=== PATIENT | female | born 1955 | race Caucasian/White ===

== ENCOUNTER → 2020-09-21 09:48 | Outpatient (BNVA) | payer OTHER, SELFPAY | PROVIDERS: Family Provider Nurse Practitioner Family; Visit Provider Internal Medicine | DX: E11.22 Type 2 diabetes mellitus with diabetic chronic kidney disease (principal); E11.65 Type 2 diabetes mellitus with hyperglycemia; E78.5 Hyperlipidemia, unspecified | CPT/HCPCS: 99204 ==

== ENCOUNTER 2020-12-20 10:43 | Outpatient (CLI) | payer OTHER, SELFPAY ==
[2020-12-20 11:21] LABS: Alanine Aminotransferase 25 U/L (0-33); Albumin Level 4.3 g/dL (3.5-5.2); Alkaline Phosphatase 114 IU/L (35-105); Anion Gap 12.8 (5-19); Aspartate Amino Transferase 25 U/L (0-32); Blood Urea Nitrogen 19 mg/dL (8-23); Carbon Dioxide 29 mmol/L (22-29); Chloride 100 mmol/L (98-107); Globulin 3.2 g/dL (1.3-4.6); Glucose 167 mg/dL (65-115); Osmolality Calculated 290 mOsm/kg (285-295); Potassium 4.8 mmol/L (3.5-5.1); Sodium 137 mmol/L (136-145); Total Bilirubin 0.2 mg/dL (0.15-1.2); Total Protein 7.5 g/dL (6.6-8.7)
[2020-12-20 11:48] LABS: Estmated Average Glucose 194; Hemoglobin A1C 8.4 % (4.0-6.0)
== END 2020-12-20 10:44 | disposition home or self-care (01) ==
LOC: LAB 10:46
PROVIDERS: Visit Provider Internal Medicine
DX: E11.22 Type 2 diabetes mellitus with diabetic chronic kidney disease (principal); N18.9 Chronic kidney disease, unspecified; E11.65 Type 2 diabetes mellitus with hyperglycemia; I10 Essential (primary) hypertension
CPT/HCPCS: 36415; 80053; 83036; 99214

== ENCOUNTER → 2022-04-25 12:41 | Outpatient (BNVA) | payer OTHER, SELFPAY | PROVIDERS: PCP Nurse Practitioner Family; Visit Provider Internal Medicine | DX: I11.0 Hypertensive heart disease with heart failure (principal); I50.9 Heart failure, unspecified; E78.5 Hyperlipidemia, unspecified; E11.9 Type 2 diabetes mellitus without complications; Z95.810 Presence of automatic (implantable) cardiac defibrillator | CPT/HCPCS: 99204 ==

== ENCOUNTER → 2022-05-05 10:41 | Outpatient (BNVA) | payer OTHER, SELFPAY | PROVIDERS: PCP Nurse Practitioner Family; Visit Provider Internal Medicine | DX: Z45.02 Encounter for adjustment and management of automatic implantable cardiac defibrillator (principal) | CPT/HCPCS: 93283 ==

== ENCOUNTER 2022-06-14 12:13 | Outpatient (CLI) | payer OTHER, SELFPAY ==
--- NOTE | 2022-06-14 12:57 | MM_ITS ---
WS: [id number] BILATERAL 3D TOMOSYNTHESIS DIGITAL SCREENING MAMMOGRAPHY WITH CAD CLINICAL INFORMATION: SCREENING MAMMOGRAM HISTORY: Screening mammogram. No current complaints. COMPARISON: TECHNIQUE: Bilateral CC and MLO views. FINDINGS: Scattered fibroglandular densities bilaterally. Punctate and lucent centered calcifications. LEFT car diac pacer. No suspicious focal mass, asymmetry, calcifications, or architectural distortion. No evid ence of malignancy. MM/[place] [id number] IMPRESSION: BI-RADS: 2-Benign FOLLOW UP: 1 Year Follow-up Recommend return to annual screening mammography.
== END 2022-06-14 12:14 | disposition home or self-care (01) ==
PROVIDERS: PCP Nurse Practitioner Family; Visit Provider Nurse Practitioner Family
DX: Z12.31 Encounter for screening mammogram for malignant neoplasm of breast (principal)
CPT/HCPCS: 77063; 77067

== ENCOUNTER → 2023-01-23 12:47 | Outpatient (BNVA) | payer OTHER, SELFPAY | PROVIDERS: PCP Nurse Practitioner Family; Visit Provider Nurse Practitioner Family | DX: Z95.810 Presence of automatic (implantable) cardiac defibrillator (principal); I11.0 Hypertensive heart disease with heart failure; I50.9 Heart failure, unspecified; Z87.891 Personal history of nicotine dependence | CPT/HCPCS: 93289; 99214 ==

== ENCOUNTER → 2023-07-24 12:43 | Outpatient (BNVA) | payer OTHER, SELFPAY | PROVIDERS: PCP Nurse Practitioner Family; Visit Provider Internal Medicine | DX: I10 Essential (primary) hypertension (principal); E78.5 Hyperlipidemia, unspecified; E11.9 Type 2 diabetes mellitus without complications; Z95.810 Presence of automatic (implantable) cardiac defibrillator; Z86.79 Personal history of other diseases of the circulatory system; Z79.4 Long term (current) use of insulin; Z87.891 Personal history of nicotine dependence | CPT/HCPCS: 99214 ==

== ENCOUNTER → 2024-04-22 13:48 | Outpatient (BNVA) | payer OTHER, SELFPAY | PROVIDERS: PCP Nurse Practitioner Family; Visit Provider Internal Medicine | DX: I10 Essential (primary) hypertension (principal); E78.5 Hyperlipidemia, unspecified; E11.9 Type 2 diabetes mellitus without complications; Z95.810 Presence of automatic (implantable) cardiac defibrillator; Z86.79 Personal history of other diseases of the circulatory system; Z79.4 Long term (current) use of insulin; Z87.891 Personal history of nicotine dependence | CPT/HCPCS: 99214 ==

== ENCOUNTER 2024-06-21 19:59 | Inpatient (IN) | payer OTHER, SELFPAY ==
[2024-06-21] VITALS (23 sets, daily range): BP systolic 107–147; BP diastolic 46–95; PULSE 101–121; RESP 14–23; TEMP 36.6; O2SAT 92–98; BMI 23.6
--- NOTE | 2024-06-21 20:49 | PC.NURSE ---
Patient arrived @ 1957. Patient is AOx4, GCS 15, and pleasent. The patient was able to stand and use the bedside commode without assistance. The patient is a good historian. Updated allergy list. Unremarkable physical assessment. Patient is on an Amio drip.
--- NOTE | 2024-06-21 21:12 | P.HP_ITS ---
Providers/Chief Complaint 2 Admitting Physician: Les Matt MD Primary Care Provider: YARELI PUCKETT History of Present Illness Shira Joshua is a 69 year old female with past medical history of nonischemic cardiomyopathy, DM, HTN with ICD in place, history of DVT on Eliquis. Patient presented to outside hospital ER earlier today due to chief complaints of dizziness, tachycardia, noted her heart rate to be 147 at home and hypotension with blood pressure systolic 80s. She denies any chest pain. She states that she was relatively in her usual state of health until Sunday morning 11 AM when the symptoms started. She complains of intermittent dizziness in the past, however has previously attributed this to being orthostatic. She was found to be in A-fib with RVR at outside hospital. She received Cardizem push, however this resulted in hypotension with blood pressure of 82/46, therefore patient was switched to amiodarone infusion, which has been continued at transfer. There has been no recent changes in her medications. Patient used to be on digoxin until 3 years ago, states this was discontinued, does not recall why. States that few days after being taken off digoxin she was in the hospital with tachycardia that nearly killed her . Currently has ICD in place. Denies any recent fever chills nausea vomiting URI type symptoms abdominal pain or diarrhea. Reports she had an episode of hemoptysis approximately one 1 week ago when she coughed up small amount of blood 3 times. She has continued to use Eliquis throughout the past week without recurrence in symptoms. Chest x-ray taken at outside hospital today showed a possible left lower lobe nodule, her son at bedside states that this may have been a known finding in the past. Patient has been awaiting an outpatient CT of the chest which may have been ordered for this incidental nodule finding or further hemoptysis. Patient is a diabetic. Her son reports she has frequent episodes of hypoglycemia most recent one was a month ago. Review of Systems 2 General: Reports: 10 or more systems reviewed and unremarkable except in HPI and below Const: Denies: fever(s), chills or body aches Eyes: Denies: change in vision, blurry vision or photophobia ENMT: Reports: hoarseness; Denies: throat pain, enlarged tonsils, odynophagia or nasal congestion Card: Denies: chest pain, palpitations, irregular heart rhythm, edema, swelling of feet/ankles, lightheadedness, pre-syncope, dyspnea on exertion or orthopnea Resp: Denies: dyspnea, productive cough, non-productive cough, wheezing, stridor, pain on inspiration, change in phlegm color, hemoptysis or chest congestion GI: Denies: abdominal pain, nausea, vomiting, hematemesis, coffee ground emesis, dysphagia, heartburn, diarrhea, constipation, GI cramping, change in stool character, hematochezia or melena : Denies: flank pain, difficulty voiding, dysuria, urinary frequency, urinary urgency, urinary hesitancy or hematuria Musc: Denies: neck pain, back pain, extremity pain, joint swelling, joint warmth or deformity Neuro: Denies: headache(s), numbness in extremities, weakness in extremities, sensory changes, difficulty walking, frequent falls, dizziness, vertigo, behavioral changes, Slurred speech present or seizure-like activity Psych: Denies: anxiety, depression, suicidal ideation or homicidal ideation Endo: Denies: polyuria, polydipsia, tired all the time, cold intolerance or hot flashes Edilberto/Lymph: Denies: easy bruising or easy bleeding Medications/Allergies Home Medications Medication Instructions Recorded Confirmed Last Taken Type carvedilol 25 mg tablet 25 mg PO BID 09/21/20 06/21/24 Unknown History cholecalciferol (vitamin D3) 50 50 mcg PO DAILY 09/21/20 06/21/24 Unknown History mcg (2,000 unit) tablet lisinopril 10 mg tablet 10 mg PO DAILY 09/21/20 06/21/24 Unknown History insulin glargine 100 unit/mL (3 25 unit SUBCUT DAILY 12/20/20 06/21/24 Unknown History mL) subcutaneous pen (Lantus Solostar U-100 Insulin) omeprazole 20 mg capsule,delayed 20 mg PO BID 12/20/20 06/21/24 Unknown History release ascorbate calcium (vitamin C) 500 500 mg PO DAILY 04/25/22 06/21/24 Unknown History mg tablet cyclobenzaprine 10 mg tablet 10 mg PO TID 04/25/22 06/21/24 Unknown History naproxen sodium 220 mg tablet 220 mg PO BID PRN pain 04/25/22 06/21/24 Unknown History rosuvastatin 20 mg tablet 20 mg PO DAILY 04/25/22 06/21/24 Unknown History apixaban 5 mg tablet (Eliquis) 5 mg PO BID #180 tabs 05/07/23 06/21/24 06/18/24 12:00 Rx tiotropium bromide 2.5 2 inh inhalation QAM 04/22/24 06/21/24 Unknown History mcg/actuation mist for inhalation Allergies Allergy/AdvReac Type Severity Reaction Status Date / Time atorvastatin [From Lipitor] Allergy ADR-Muscle Verified 06/21/24 20:26 Pain PFSH Acute 2 PFSH: Medical History Hypertension Diabetes Arthritis Irregular heart rate Cardiac defibrillator in place COPD (chronic obstructive pulmonary disease) Surgical History History of tubal ligation Family History Sister Cancer Other Diabetes Social History Smoking and tobacco/nicotine status: former use of tobacco/nicotine Vitals/I&O/Wt Last Vital Signs Temp 97.8 F 06/21/24 20:40 Pulse 107 H 06/21/24 20:45 Resp 20 H 06/21/24 20:45 BP 118/95 06/21/24 20:45 Pulse Ox 95 06/21/24 20:45 O2 Del Method Room Air 06/21/24 20:40 Weight last 48 hrs Weight 68.5 kg Physical Exam 2 Narrative: General: No acute distress, AO x3 HEENT: PERRLA, pupils bilaterally equal and reactive, pallors not present Chest: Normal vesicular breath sounds, no added sounds, equal good air entry bilaterally CVS: S1-S2 regular, no murmurs, no tachycardia, no gallops, no rubs Abdomen: Soft, nontender, no organomegaly, bowel sounds present Neuro: No focal deficits, no facial deformity, AO x3, power 5/5 in all limbs Data 06/22/24 03:13 06/22/24 03:13 Other Labs: Labs from outside hospital: Sodium 127, potassium 4.8, chloride 94, BUN 24, creatinine 1.3, T. bili 0.2, alkaline phosphatase 95, AST 21, ALT 13 TSH 1.56 BNP 4019 Troponin: 54 WBC 9.3 Hemoglobin 10.3 Platelet 233 A&P Assessment and plan (1) Cardiac defibrillator in place: (2) Diabetes: (3) Atrial fibrillation with RVR: (4) Hypotension: (5) Pulmonary nodule: Plan 69-year-old lady presenting to outside hospital with chief complaints of dizziness, hypotension and tachycardia, found to be in A-fib with RVR for which she is currently on amiodarone infusion. Currently heart rate has been ranging between 80-1 20 since arrival. Plan to add digoxin if continues to be tachycardic. Device interrogation to assess frequency of atrial fibrillation at baseline. Patient reports episodes of hypotension dizziness intermittently during the course of past few months, may have been related to underlying A-fib RVR or other arrhythmias. Currently on anticoagulation with Eliquis 5 mg twice daily which we will continue. Had episode of hemoptysis 1 week ago this has since resolved. Will check echocardiogram, patient has had a history of nonischemic cardiomyopathy, I do not see a recent echocardiogram on file, patient reports it has been at least 2 to 3 years since this was last checked. Incidental note made of pulmonary nodule on chest x-ray. No clinical signs or symptoms of pneumonia at this time, holding off on antibiotics. Will order CT chest to further assess given recent hemoptysis. Noted anemia on labs, hemoglobin at 10.3, check fecal occult blood. Denies any mary hemoptysis or melena. Denies any complaining of chest pain, baseline troponin at 54, will repeat here to assess for any intra significant interval change. Low suspicion for ACS at this time. Closely monitor in the ICU tonight given hypotension just prior to arrival. If remains stable may be able to transfer to cardiac stepdown in the morning. Check iron panel, ferritin, B12 folic acid for evaluation of anemia. DVT prophylaxis: Patient on Eliquis Full code PUD prophylaxis: Protonix 40 mg p.o. daily Attestations 2 Medical Necessity Statement*: Greater than 2 midnight stays expected Diagnoses Cardiac defibrillator in place Z95.810 Diabetes E11.9 Atrial fibrillation with RVR I48.91 Hypotension I95.9 Pulmonary nodule R91.1
--- NOTE | 2024-06-21 21:33 | PC.NURSE ---
Dr had questioned if the patient received the intial bolus of Amio. After reviewing the chart from [facility], the patient had received the bolus. Dr. Miguel ordered to restart the reduction titration of the Amiodarone. It has been set at 1mg/min and will be reduced at 0300(apprx).
--- NOTE | 2024-06-21 23:05 | ECG_ITS ---
[facility] Test Date: 2024-06-21 Pat Name: Shira Joshua Department: Room: [facility] Gender: Female Counter Sales Person: : 1955 Requested By: Ayala Decker Order Number: [id number] Goldman MD: Sandeep Fiore M.D. Measurements Intervals [place] Rate: 109 P: 0 WI: 0 QRS: 114 QRSD: 142 T: 56 QT: 387 QTc: 522 Interpretive Statements ATRIAL FIBRILLATION WITH RAPID VENTRICULAR RESPONSE ELECTRONIC VENTRICULAR PACEMAKER RIGHT AXIS DEVIATION [QRS AXIS > 100] RIGHT BUNDLE BRANCH BLOCK [120+ ms QRS DURATION, UPRIGHT V1, 40+ ms S IN I/aVL/V4/V5/V6] No previous ECG available for comparison Electronically Signed On 06-22-2024 9:12:37 CDT by Sandeep Fiore M.D. [email or web address]
[2024-06-22] VITALS (102 sets, daily range): BP systolic 105–178; BP diastolic 65–134; PULSE 84–135; RESP 12–42; TEMP 36.4–37.2; O2SAT 88–100; BMI 23.8
[2024-06-22] MEDS: acetaminophen 325 mg Tablet 650 MG PO (00:11)
[2024-06-22] MEDS: morphine 4 mg/mL SDV 1 mL 2 MG IVP (02:14)
[2024-06-22 03:35] LABS: Basophils % 0.3 %; Eosinophils % 0.5 %; Hematocrit 32.1 % (36-47); Lymphocytes # 3.8 10^3/uL (0.8-4.8); Lymphocytes % 49.7 %; Mean Corpuscular HGB Conc 30.2 g/dL (30-55); Mean Corpuscular Hemoglobin 27.3 pg (27-33); Mean Corpuscular Volume 90.4 fl (85-98); Mean Platelet Volume 9.2 fL (7.4-10.4); Monocytes # 0.5 10^3/uL (0.2-0.9); Monocytes % 6.6 %; Neutrophils # 3.25 10^3/uL (1.8-7.7); Neutrophils % 42.6 %; Nucleated Red Blood Cells % 0 %; Platelet Count 200 10^3/cmm (157-399); Red Blood Count 3.55 10^6/uL (3.85-5.65); Red Cell Distribution Width 17.6 % (12.1-15.1); White Blood Count 7.61 10^3/uL (3.29-11.43)
[2024-06-22 04:13] LABS: Alanine Aminotransferase 15 U/L (0-33); Albumin Level 3.6 g/dL (3.5-5.2); Alkaline Phosphatase 83 U/L (35-105); Anion Gap 16.1 (5-19); Aspartate Amino Transferase 28 U/L (0-32); Blood Urea Nitrogen 22 mg/dL (8-23); Calcium 8.7 mg/dL (8.5-10.5); Carbon Dioxide 23 mmol/L (22-29); Chloride 101 mmol/L (98-107); Globulin 2.6 g/dL (1.3-4.6); Glomerular Filtration Rate 55.1 mL/min (90-130); Glucose 155 mg/dL (65-115); Magnesium 1.9 mg/dL (1.7-2.3); Osmolality Calculated 288 mOsm/kg (285-295); Potassium 4.1 mmol/L (3.5-5.1); Sodium 136 mmol/L (136-145); Thyroid Stimulating Hormone 2.59 uIU/mL (0.27-4.20); Total Bilirubin 0.2 mg/dL (0.15-1.2); Total Protein 6.2 g/dL (6.6-8.7)
[2024-06-22 05:17] LABS: Troponin T (5th) Once 60 ng/L (0-10)
[2024-06-22 05:34] LABS: SARS Covid-2 Antigen negative (Negative)
--- NOTE | 2024-06-22 05:37 | PC.NURSE ---
Patient's defibrillator([employer]) was interrogated. Awaiting report.
[2024-06-22 05:52] LABS: Estmated Average Glucose 157; Hemoglobin A1C 7.1 % (4.0-6.0)
[2024-06-22 05:57] LABS: Ferritin 22 ng/mL (15-150)
[2024-06-22] MEDS: digoxin 250 mcg/ml INJ 2 mL IVP (06:45)
--- NOTE | 2024-06-22 07:05 | CTR_ITS ---
PROCEDURE INFORMATION: Exam: CT Chest Without Contrast; Diagnostic Exam date and time: 06/22/2024 11:14 AM Age: 69 years old Clinical indication: Other: Hemoptysis, left ll nodule on cxr TECHNIQUE: Imaging protocol: Diagnostic computed tomography of the chest without contrast. Radiation optimization: All CT scans at this facility use at least one of these dose optimization techniques: automated exposure control; mA and/or kV adjustment per patient size (includes targeted exams where dose is matched to clinical indication); or iterative reconstruction. COMPARISON: No relevant prior studies available. RADIATION DOSE METRICS: Total DLP (mGy-cm): 381.59 FINDINGS: Tubes, catheters and devices: Cardiac pacemaker on the left with leads in satisfactory position. Lungs: See Pleural spaces finding. Pleural spaces: Focal pleural thickening and atelectasis involves the right lung base. I see no lung nodule infiltrate. Heart: Unremarkable. No cardiomegaly. No pericardial effusion. Coronary arteries: Coronary artery calcifications are noted. Lymph nodes: Unremarkable. No enlarged lymph nodes. Vasculature: Unremarkable. No aortic aneurysm. Bones/joints: Unremarkable. No acute fracture. Soft tissues: Unremarkable. CT/CT chest wo con [id number] IMPRESSION: 1. No acute findings. 2. Chronic pleural changes involving the right base
[2024-06-22] MEDS: ipratropium 0.5 mg/2.5 mL Neb INHALATION ×4 (07:28→19:54)
--- NOTE | 2024-06-22 07:43 | P.PN_ITS ---
Subjective 2 Subjective: seen at bedside this AM tolerating amiodarone gtt. HR bouncing between 84 and 120 [address]is [address], palpitations, SOB, dizziness, N/V tolerating food well was on digoxin x 25yr. taken off 3yrs ago then had ablation 3 weeks thereafter. has been umedicated x 3yrs.. Medications: Reviewed: Yes Vitals/I&O/Wt Last Vital Signs Temp 97.8 F 06/21/24 20:40 Pulse 109 H 06/22/24 07:35 Resp 16 06/22/24 07:28 BP 133/82 06/22/24 05:15 Pulse Ox 97 06/22/24 07:28 O2 Del Method Room Air 06/22/24 07:28 06/21/24 06/22/24 06/22/24 22:59 06:59 14:59 Intake Total 188.87 / 188.87 Output Total 0 / 0 Balance 188.87 / 188.87 Weight last 48 hrs Weight 152 lb 1.903 oz Weight 151 lb 0.266 oz Physical Exam 2 Narrative: General: No acute distress, AO x3 HEENT: PERRLA, pupils bilaterally equal and reactive, pallors not present Chest: Normal vesicular breath sounds, no added sounds, equal good air entry bilaterally CVS: S1-S2 regular, no murmurs, no tachycardia, no gallops, no rubs Abdomen: Soft, nontender, no organomegaly, bowel sounds present Neuro: No focal deficits, no facial deformity, AO x3, power 5/5 in all limbs Data 06/22/24 03:13 06/22/24 03:13 A&P Assessment and plan (1) Cardiac defibrillator in place: (2) Diabetes: (3) Atrial fibrillation with RVR: (4) Hypotension: (5) Pulmonary nodule: Plan A-fib with RVR for which she is currently on amiodarone infusion. Currently heart rate has been ranging between 80-1 20 since arrival. titrating amiodarone Plan to add digoxin if continues to be tachycardic. Device interrogation to assess frequency of atrial fibrillation at baseline. Patient reports episodes of hypotension dizziness intermittently during the course of past few months, may have been related to underlying A-fib RVR or other arrhythmias. Currently on anticoagulation with Eliquis 5 mg twice daily which we will continue. Had episode of hemoptysis 1 week ago this has since resolved. pending ECHO. Hx of nonischemic cardiomyopathy CXR showed possible incidental pulmonary nodule. no current Sx. 3 episodes of hemoptysis >[address] Asx thus holding off Abx DVT prophylaxis: Patient on Eliquis Full code PUD prophylaxis: Protonix 40 mg p.o. daily Attestations 2 Medical Necessity Statement*: will require 2 overnight stays due to ICU stay Coding Level of Care Code 32812 Diagnoses Cardiac defibrillator in place Z95.810 Diabetes E11.9 Atrial fibrillation with RVR I48.91 Hypotension I95.9 Pulmonary nodule R91.1
[2024-06-22 08:03] LABS: Glucose Point of Care 163 mg/dL (70-110)
[2024-06-22] MEDS: apixaban 5 mg Tablet PO ×2 (08:13→17:13)
[2024-06-22] MEDS: insulin lispro 100 unit/1 mL SUBCUT ×3 (08:13→20:39)
[2024-06-22] MEDS: pantoprazole DR 40 mg Tablet PO (08:13)
[2024-06-22 10:01] LABS: Iron 22 ug/dL (37-145); Percent Saturation 7.9 % (20-50); Total Iron Binding Capacity 277 mcg/dl; Unsaturated Iron Binding 255 ug/dL (112-347)
[2024-06-22 10:16] LABS: Vitamin B12 306 pg/mL (232-1245)
[2024-06-22 10:20] LABS: Folate Level 15.2 ng/mL (4.8-37.3)
[2024-06-22 12:04] LABS: Glucose Point of Care 118 mg/dL (70-110)
[2024-06-22] MEDS: lisinopril 10 mg Tablet PO (14:52)
[2024-06-22] MEDS: metoprolol tartrate 1 mg/1 mL SDV 5 mL 2.5 MG IVP (15:37)
[2024-06-22 17:36] LABS: Glucose Point of Care 159 mg/dL (70-110)
[2024-06-22 20:33] LABS: Glucose Point of Care 213 mg/dL (70-110)
[2024-06-22] MEDS: metoprolol tartrate 50 mg Tablet PO (20:35)
--- NOTE | 2024-06-22 22:41 | PC.NURSE ---
Addendum entered by ALEXANDER Lockwood 06/22/24 22:56: Update: 2256: Patient's BG was reassessed resulting in 86. Patient stated I am feeling better . Original Note: Around 2031(apprx) the patient requested to get up and use the bathroom. This has been routine for this patient and she was assisted out of the bed and she ambulated to the in-room toilet. The then was returning to her bed when she complained of being dizzy . The patient's blood glucose was assessed and found to be 55(it was 213 at the last check, with 6 units of insulin being administer, per protocol). The patient was then given a small can of Sprite. The patient was offered food but denied this. Patient will be re-assessed in 15 minutes.
[2024-06-22 22:58] LABS: Glucose Point of Care 86 mg/dL (70-110)
[2024-06-23] VITALS (67 sets, daily range): BP systolic 106–157; BP diastolic 73–120; PULSE 83–127; RESP 12–29; TEMP 36.6–36.9; O2SAT 92–99
[2024-06-23] MEDS: cyclobenzaprine 10 mg Tablet PO (01:32)
[2024-06-23] MEDS: acetaminophen 325 mg Tablet 650 MG PO (01:32)
[2024-06-23 04:27] LABS: Basophils % 0.3 %; Eosinophils % 0.3 %; Hematocrit 32.9 % (36-47); Lymphocytes % 33.3 %; Mean Corpuscular HGB Conc 30.7 g/dL (30-55); Mean Corpuscular Hemoglobin 27.9 pg (27-33); Mean Corpuscular Volume 90.9 fl (85-98); Monocytes # 0.7 10^3/uL (0.2-0.9); Monocytes % 7.4 %; Neutrophils # 5.17 10^3/uL (1.8-7.7); Neutrophils % 58.5 %; Nucleated Red Blood Cells % 0 %; Platelet Count 222 10^3/cmm (157-399); Red Blood Count 3.62 10^6/uL (3.85-5.65); Red Cell Distribution Width 17.5 % (12.1-15.1); White Blood Count 8.86 10^3/uL (3.29-11.43)
[2024-06-23 05:01] LABS: Alanine Aminotransferase 15 U/L (0-33); Albumin Level 3.7 g/dL (3.5-5.2); Alkaline Phosphatase 87 U/L (35-105); Anion Gap 16.4 (5-19); Aspartate Amino Transferase 20 U/L (0-32); Blood Urea Nitrogen 23 mg/dL (8-23); Calcium 9.1 mg/dL (8.5-10.5); Carbon Dioxide 22 mmol/L (22-29); Chloride 102 mmol/L (98-107); Creatinine Clr Calc Pharmacy 49.8873; Globulin 2.9 g/dL (1.3-4.6); Glomerular Filtration Rate 49.4 mL/min (90-130); Glucose 171 mg/dL (65-115); Osmolality Calculated 290 mOsm/kg (285-295); Potassium 4.4 mmol/L (3.5-5.1); Sodium 136 mmol/L (136-145); Total Bilirubin 0.2 mg/dL (0.15-1.2); Total Protein 6.6 g/dL (6.6-8.7)
[2024-06-23] MEDS: metoprolol tartrate 50 mg Tablet PO ×2 (08:16→21:36)
[2024-06-23] MEDS: pantoprazole DR 40 mg Tablet PO (08:16)
[2024-06-23] MEDS: lisinopril 10 mg Tablet PO (08:16)
[2024-06-23] MEDS: apixaban 5 mg Tablet PO ×2 (08:17→17:37)
[2024-06-23] MEDS: insulin lispro 100 unit/1 mL SUBCUT ×3 (08:17→17:37)
[2024-06-23] MEDS: ipratropium 0.5 mg/2.5 mL Neb INHALATION ×3 (08:18→20:01)
[2024-06-23 09:15] LABS: Glucose Point of Care 55 mg/dL (70-110)
--- NOTE | 2024-06-23 10:00 | USCV_ITS ---
Shira Joshua Age: 69 Gender: F : 1955 Exam Date: 06/23/2024 13:03 Ordering Phys: Ayala Decker MD Technologist: [place] [facility] [place] afib BP: 130 / 82 HR: 99 Rhythm: Atrial fibrillation Technical Quality: Adequate MEASUREMENTS (Male / Female) Normal Values 2D ECHO LVOT Diameter 2.0 cm LV Ejection Fraction MOD 4C 27.1 % LV Ejection Fraction MOD 2C 38.1 % LV Ejection Fraction 2C AL 43.4 % LA Diameter 3.4 cm RA Systolic Volume 4C AL 42.8 ml RA Systolic Volume 4C MOD 41.0 ml LA Sys Volume AL 55.2 cm cubed LA Sys Volume Index AL 30.5 cm cubed/m squared Aorta at Sinotubular Diameter 2.6 cm IVC Diameter 2.1 cm M-MODE LA Ao Ratio MM 1.1 AV Cusp Separation MM 1.8 cm DOPPLER AV Peak Velocity 101.0 cm/s LVOT Peak Velocity 66.0 cm/s AV Area Cont Eq vti 2.2 cm squared AV Area Cont Eq pk 2.1 cm squared MV Peak Velocity 120.0 cm/s MV Area PHT 5.9 cm squared Mitral E to A Ratio 0.0 TR Peak Velocity 248.0 cm/s TR Peak Gradient 24.6 mmHg TV Peak E Velocity 66.0 cm/s Right Atrial Pressure 3.0 mmHg Pulmonary Artery Systolic Pressu 27.6 mmHg PV Peak Velocity 82.0 cm/s FINDINGS Left Ventricle Moderately increased left ventricular size, severely decreased left ventricular systolic function. Global left ventricular hypokinesis. Estimated ejection fraction is 20%.Grade III/IV diastolic dysfunction (restrictive filling pattern), severely elevated filling pressures. Right Ventricle The right ventricle is normal in size and function. Right Atrium The right atrium is normal in size. Left Atrium Severely increased left atrial size. Mitral Valve Structurally normal mitral valve without significant stenosis or prolapse. There is mild mitral regurgitation. Aortic Valve Structurally normal aortic valve without significant sclerosis or stenosis. There is mild aortic regurgitation. Tricuspid Valve Structurally normal tricuspid valve without significant stenosis trace regurgitation. Pulmonary artery systolic pressure is normal. Pulmonic Valve Structurally normal pulmonic valve without significant stenosis. There is no pulmonic regurgitation. Pericardium Normal pericardium without effusion. Aorta Normal ascending aorta dimension. IVC The inferior vena cava appears normal. CONCLUSIONS 1-Moderately increased left ventricular size, severely decreased left ventricular systolic function. Global left ventricular hypokinesis. Estimated ejection fraction is 20%.Grade III/IV diastolic dysfunction (restrictive filling pattern), severely elevated filling pressures. 2-Severely increased left atrial size. 3-Structurally normal mitral valve without significant stenosis or prolapse. There is mild mitral regurgitation. 4-There is no pericardial effusion. 5-Right atrial pressure is around 10 mm of mercury. Santos Guevara MD (Electronically Signed) Final Date: 23 June 2024 19:53 S
--- NOTE | 2024-06-23 12:04 | P.PN_ITS ---
Subjective 2 Subjective: History and physical reviewed. Patient without complaints. Eager to get home as soon as she can. Feels better than she did. When I saw her still with heart rate around 110, irregular. Medications: Reviewed: Yes Vitals/I&O/Wt Last Vital Signs Temp 97.9 F 06/23/24 08:00 Pulse 88 06/23/24 11:48 Resp 22 H 06/23/24 11:48 BP 143/95 06/23/24 08:00 Pulse Ox 99 06/23/24 11:48 O2 Del Method Room Air 06/23/24 11:48 06/22/24 06/23/24 06/23/24 22:59 06:59 14:59 Intake Total 335 / 585 425 / 1010 Balance 335 / 585 425 / 1010 Weight last 48 hrs Weight 69 kg Weight 68.5 kg Physical Exam 2 Narrative: General Exam no distress Neck is supple Cardiovascular irregular, irregular with exciting tolerated rate Lungs clear Abdomen soft Extremities no cyanosis clubbing edema Data 06/23/24 03:56 06/23/24 03:56 A&P Assessment and plan (1) Cardiac defibrillator in place: (2) Diabetes: Sliding scale insulin, changed to mild (3) Atrial fibrillation with RVR: Change amiodarone to p.o., 400 mg twice daily Cardiology consultation Continue anticoagulation with apixaban Metoprolol 50 mg twice daily was added for better rate control. Awaiting echocardiogram History of nonischemic cardiomyopathy. (4) Hypotension: Resolved (5) Pulmonary nodule: Consider outpatient follow-up Plan Hemoptysis, resolved. Chest CT no acute findings. Consider outpatient pulmonary follow-up. DVT prophylaxis: Patient on Eliquis Full code PUD prophylaxis: Protonix 40 mg p.o. daily Amiodarone drip, can potentially affect heart rhythm with worsening clinical status and close monitoring as needed Attestations 2 Medical Necessity Statement*: Needs continued hospitalization for adjustment of medications for atrial fibrillation. Possible discharge tomorrow. Transfer out of ICU. Diagnoses Cardiac defibrillator in place Z95.810 Diabetes E11.9 Atrial fibrillation with RVR I48.91 Hypotension I95.9 Pulmonary nodule R91.1 Time Spent (min) 31
[2024-06-23 12:22] LABS: Glucose Point of Care 166 mg/dL (70-110)
[2024-06-23 12:57] LABS: Glucose Point of Care 193 mg/dL (70-110)
[2024-06-23 17:19] LABS: Glucose Point of Care 202 mg/dL (70-110)
--- NOTE | 2024-06-23 17:42 | PC.NURSE ---
Orders from Dr. Guevara to continue amiogarone gtt over night and hold oral amiodarone. Patient will have cardioversion tomorrow if does not convert to sinus rhythm
--- NOTE | 2024-06-23 20:18 | P.CONIM_ITS ---
Providers/Reason For Consult 2 Consulting Physician/Specialty*: abel Peters MD Reason for Consult*: A-fib with rapid ventricular response Hypotension History of nonischemic cardiomyopathy Status post AICD Requesting Physician: Michael Linares MD Attending Physician: Michael Linares MD Primary Care Provider: YARELI PUCKETT History of Present Illness History of Present Illness Shira Joshua is a 69 year old female past medical history significant for nonischemic cardiomyopathy, CKD, history of AICD, history of DVT presented with A-fib RVR, patient was started on breonna darryl such as calcium channel darryl leading to hypotension therefore switched to IV amiodarone. We have been asked to assist in her care. Patient denies any chest pain PND orthopnea. Twelve- lead EKG suggestive of atrial fibrillation PVCs otherwise no significant ST's ST changes suggestive of ischemia. Review of Systems 2 General: Reports: 10 or more systems reviewed and unremarkable except in HPI and below Const: Denies: fever(s), chills or body aches Eyes: Denies: change in vision, blurry vision or photophobia ENMT: Reports: hoarseness; Denies: throat pain, enlarged tonsils, odynophagia or nasal congestion Card: Denies: chest pain, palpitations, irregular heart rhythm, edema, swelling of feet/ankles, lightheadedness, pre-syncope, dyspnea on exertion or orthopnea Resp: Denies: dyspnea, productive cough, non-productive cough, wheezing, stridor, pain on inspiration, change in phlegm color, hemoptysis or chest congestion GI: Denies: abdominal pain, nausea, vomiting, hematemesis, coffee ground emesis, dysphagia, heartburn, diarrhea, constipation, GI cramping, change in stool character, hematochezia or melena : Denies: flank pain, difficulty voiding, dysuria, urinary frequency, urinary urgency, urinary hesitancy or hematuria Musc: Denies: neck pain, back pain, extremity pain, joint swelling, joint warmth or deformity Neuro: Denies: headache(s), numbness in extremities, weakness in extremities, sensory changes, difficulty walking, frequent falls, dizziness, vertigo, behavioral changes, Slurred speech present or seizure-like activity Psych: Denies: anxiety, depression, suicidal ideation or homicidal ideation Endo: Denies: polyuria, polydipsia, tired all the time, cold intolerance or hot flashes Edilberto/Lymph: Denies: easy bruising or easy bleeding All/Imm: Denies: acute wheezing Medications/Allergies Home Medications Medication Instructions Recorded Confirmed Last Taken Type carvedilol 25 mg tablet 25 mg PO BID 09/21/20 06/21/24 Unknown History cholecalciferol (vitamin D3) 50 50 mcg PO DAILY 09/21/20 06/21/24 Unknown History mcg (2,000 unit) tablet lisinopril 10 mg tablet 10 mg PO DAILY 09/21/20 06/21/24 Unknown History insulin glargine 100 unit/mL (3 25 unit SUBCUT DAILY 12/20/20 06/21/24 Unknown History mL) subcutaneous pen (Lantus Solostar U-100 Insulin) omeprazole 20 mg capsule,delayed 20 mg PO BID 12/20/20 06/21/24 Unknown History release ascorbate calcium (vitamin C) 500 500 mg PO DAILY 04/25/22 06/21/24 Unknown History mg tablet cyclobenzaprine 10 mg tablet 10 mg PO TID 04/25/22 06/21/24 Unknown History naproxen sodium 220 mg tablet 220 mg PO BID PRN pain 04/25/22 06/21/24 Unknown History rosuvastatin 20 mg tablet 20 mg PO DAILY 04/25/22 06/21/24 Unknown History apixaban 5 mg tablet (Eliquis) 5 mg PO BID #180 tabs 05/07/23 06/21/24 06/18/24 12:00 Rx tiotropium bromide 2.5 2 inh inhalation QAM 04/22/24 06/21/24 Unknown History mcg/actuation mist for inhalation Allergies Allergy/AdvReac Type Severity Reaction Status Date / Time atorvastatin [From Lipitor] Allergy ADR-Muscle Verified 06/21/24 20:26 Pain Current Medications Generic Name Dose Route Start Last Admin Trade Name Freq PRN Reason Stop Dose Admin Acetaminophen 650 mg 06/21/24 21:05 06/23/24 01:32 Acetaminophen 325 Mg Tablet PO 650 mg Q6H PRN Administration Mild/Mod Pain Or Temp >/= 101 Amiodarone HCl 400 mg 06/23/24 18:00 06/23/24 17:42 Amiodarone 200 Mg Tablet PO Not Given BID MONSE Apixaban 5 mg 06/22/24 09:00 06/23/24 17:37 Apixaban 5 Mg Tablet PO 5 mg BID MONSE Administration Cyclobenzaprine HCl 10 mg 06/22/24 05:21 06/23/24 01:32 Cyclobenzaprine 10 Mg Tablet PO 10 mg TID PRN Administration SPASMS Amiodarone HCl/Dextrose 360 mg in 200 mls @ 0 mls/hr 06/21/24 21:09 06/23/24 17:40 Nexterone IV 0.01 mg/min .Q0M MONSE 0.5 mls/hr Administration Protocol Per Protocol Insulin Human Lispro 0 unit 06/22/24 08:00 06/23/24 17:37 Insulin Lispro 100 Unit/1 Ml SUBCUT 2 unit WM&BEDTIME MONSE Administration Protocol Ipratropium [place] 0.5 mg 06/22/24 08:00 06/23/24 20:01 Ipratropium 0.5 Mg/2.5 Ml Neb INHALATION 0.5 mg QID.RESPIRATORY MONSE Administration Lisinopril 10 mg 06/23/24 09:00 06/23/24 08:16 Lisinopril 10 Mg Tablet PO 10 mg DAILY MONSE Administration Metoprolol Tartrate 50 mg 06/22/24 21:00 06/23/24 08:16 Metoprolol Tartrate 50 Mg Tablet PO 50 mg BID@0900,2100 MONSE Administration Pantoprazole Sodium 40 mg 06/22/24 09:00 06/23/24 08:[address] 40 Mg Tablet PO 40 mg DAILY MONSE Administration PFSH Acute 2 PFSH: Medical History Hypertension Diabetes Arthritis Irregular heart rate Cardiac defibrillator in place COPD (chronic obstructive pulmonary disease) Surgical History History of tubal ligation Family History Sister Cancer Other Diabetes Social History Smoking and tobacco/nicotine status: former use of tobacco/nicotine Dietary Habits: Current diet type/program: regular Caffeine: Yes Vitals/I&O/Wt Last Vital Signs Temp 98.0 F 06/23/24 16:00 Pulse 114 H 06/23/24 20:06 Resp 17 06/23/24 20:00 BP 126/93 06/23/24 16:00 Pulse Ox 97 06/23/24 20:00 O2 Del Method Room Air 06/23/24 20:00 06/23/24 06/23/24 06/23/24 06:59 14:59 22:59 Intake Total 425 / 1010 200 / 200 Balance 425 / 1010 200 / 200 Weight last 48 hrs Weight 151 lb 8 oz Weight 152 lb 1.903 oz Physical Exam 2 Const: OTHER: GENERAL: Patient is alert, awake and oriented x3. Laying in the bed thin lean not in distress HEART: Irregularly irregular S1 and S2. 2/ 6 systolic murmur. LUNGS: Decreased breath sounds e bilaterally. CENTRAL NERVOUS SYSTEM: Grossly nonfocal. EXTREMITIES: Lower extremities without edema bilaterally. Data 06/23/24 03:56 06/23/24 03:56 A&P Assessment and plan (1) Atrial fibrillation with RVR: New onset of atrial fibrillation, in the face of severely decreased left ventricular ejection fraction 20% no previous echo to compare we agree with continuing IV amiodarone, plan to proceed with cardioversion tomorrow morning. Patient will be n.p.o. overnight. Patient has not missed Eliquis in the last for 5 months therefore it will be safe to proceed with cardioversion without MONO Continue IV amiodarone Continue apixaban (2) History of congestive heart failure: Appear to be well compensated however in the face of A-fib with RVR losing atrial kick will further exacerbate congestive heart failure. We are planning to proceed with cardioversion in the morning. Once cardioverted into sinus rhythm will continue p.o. amiodarone, I will add Entresto and spironolactone for LV dysfunction. (3) Cardiac defibrillator in place: Will interrogate and reset pacemaker/ICD after cardioversion if indicated Coding Level of Care Code Acute Code for Chg Fwd Diagnoses Atrial fibrillation with RVR I48.91 History of congestive heart failure Z86.[address] Z95.810
[2024-06-23 21:10] LABS: Glucose Point of Care 181 mg/dL (70-110)
[2024-06-24] VITALS (9 sets, daily range): BP systolic 120–139; BP diastolic 79–100; PULSE 93–121; RESP 12–27; TEMP 36.7–37.1; O2SAT 94–96
[2024-06-24 04:19] LABS: Basophils % 0.2 %; Eosinophils # 0.1 10^3/uL (0.0-0.8); Eosinophils % 0.6 %; Hematocrit 32.8 % (36-47); Lymphocytes # 2.8 10^3/uL (0.8-4.8); Lymphocytes % 29.6 %; Mean Corpuscular HGB Conc 30.8 g/dL (30-55); Mean Corpuscular Hemoglobin 27.6 pg (27-33); Mean Corpuscular Volume 89.6 fl (85-98); Mean Platelet Volume 9.4 fL (7.4-10.4); Monocytes # 0.8 10^3/uL (0.2-0.9); Monocytes % 8.3 %; Neutrophils % 61.1 %; Nucleated Red Blood Cells % 0 %; Platelet Count 221 10^3/cmm (157-399); Red Blood Count 3.66 10^6/uL (3.85-5.65); Red Cell Distribution Width 17.4 % (12.1-15.1); White Blood Count 9.33 10^3/uL (3.29-11.43)
[2024-06-24 04:46] LABS: Alanine Aminotransferase 14 U/L (0-33); Albumin Level 3.7 g/dL (3.5-5.2); Alkaline Phosphatase 97 U/L (35-105); Anion Gap 16.1 (5-19); Aspartate Amino Transferase 17 U/L (0-32); Blood Urea Nitrogen 17 mg/dL (8-23); Calcium 9.4 mg/dL (8.5-10.5); Carbon Dioxide 22 mmol/L (22-29); Chloride 102 mmol/L (98-107); Creatinine Clr Calc Pharmacy 60.8672; Glomerular Filtration Rate 62.3 mL/min (90-130); Glucose 162 mg/dL (65-115); Osmolality Calculated 287 mOsm/kg (285-295); Potassium 4.1 mmol/L (3.5-5.1); Sodium 136 mmol/L (136-145); Total Bilirubin 0.2 mg/dL (0.15-1.2); Total Protein 6.7 g/dL (6.6-8.7)
[2024-06-24 06:27] LABS: Glucose Point of Care 174 mg/dL (70-110)
[2024-06-24] MEDS: ipratropium 0.5 mg/2.5 mL Neb INHALATION (07:40)
[2024-06-24] MEDS: metoprolol tartrate 50 mg Tablet PO (08:37)
[2024-06-24] MEDS: amiodarone 200 mg Tablet 400 MG PO (08:37)
[2024-06-24] MEDS: pantoprazole DR 40 mg Tablet PO (08:38)
[2024-06-24] MEDS: apixaban 5 mg Tablet PO (08:38)
--- NOTE | 2024-06-24 09:52 | P.PN_ITS ---
Subjective 2 Subjective: Shira reports she is doing okay. Not short of breath. No chest discomfort. Cardioversion planned today. Medications: Reviewed: Yes Vitals/I&O/Wt Last Vital Signs Temp 98.5 F 06/24/24 07:15 Pulse 118 H 06/24/24 07:45 Resp 24 H 06/24/24 07:40 BP 127/97 06/24/24 07:15 Pulse Ox 94 06/24/24 07:40 O2 Del Method Room Air 06/24/24 07:40 06/23/24 06/24/24 06/24/24 22:59 06:59 14:59 Intake Total 380.008 / 380.008 191.427 / 571.435 Balance 380.008 / 380.008 191.427 / 571.435 Weight last 48 hrs Weight 68.719 kg Physical Exam 2 Narrative: General Exam no distress. Telemetry demonstrates A-fib with RVR, rate around 120 Neck is supple Cardiovascular irregular, irregular with exciting tolerated rate Lungs clear Abdomen soft Extremities no cyanosis clubbing edema Data 06/24/24 04:00 06/24/24 04:00 A&P Assessment and plan (1) Cardiac defibrillator in place: Appropriate given EF around 20% by echo (2) Diabetes: Sliding scale insulin, changed to mild (3) Atrial fibrillation with RVR: Amiodarone to p.o., 400 mg twice daily Cardiology consultation appreciated. Cardioversion planned today. This was discussed in detail with the patient Continue anticoagulation with apixaban Metoprolol 50 mg twice daily was added for better rate control. This may need to be adjusted following cardioversion Echocardiogram demonstrated EF around 20%. She already has defibrillator in place History of nonischemic cardiomyopathy. BMP in the morning (4) Hypotension: Resolved (5) Pulmonary nodule: Consider outpatient follow-up Plan Anemia, stable Hemoptysis, resolved. Chest CT no acute findings. Consider outpatient pulmonary follow-up for this as well as episode of hemoptysis DVT prophylaxis: Patient on Eliquis Full code PUD prophylaxis: Protonix 40 mg p.o. daily Amiodarone drip, can potentially affect heart rhythm with worsening clinical status and close monitoring as needed Attestations 2 Medical Necessity Statement*: Needs continued hospitalization for cardioversion today, adjustment of medications for ejection fraction of 20% with A-fib with RVR. Diagnoses Cardiac defibrillator in place Z95.810 Diabetes E11.9 Atrial fibrillation with RVR I48.91 Hypotension I95.9 Pulmonary nodule R91.1 Time Spent (min) 26
[2024-06-24 11:25] LABS: Glucose Point of Care 179 mg/dL (70-110)
--- NOTE | 2024-06-24 12:27 | ANES.PREANE2 ---
Pre-Anesthetic Assessment Height/Weight: Height 1.7 m Weight 68.719 kg Temp Pulse Resp BP Pulse Ox O2 Del Method 98.0 F 93 15 132/100 96 Room Air 06/24/24 11:54 06/24/24 11:54 06/24/24 11:54 06/24/24 11:54 06/24/24 11:54 06/24/24 11:54 Cardioversion Familial anesthetic complications: None Was Beta Ritika taken within 24 hours: N/A Was Clonidine taken within 24 hours: N/A Last intake: > 8 hrs Social No alcohol and No tobacco Exam alert, oriented x 3, clear to auscultation bilaterally and regular rate & rhythm Airway Mallampati: Class I Dentition: other (no teeth) CV/HEM Atrial Fibrillation (w/ RVR) and Deep Vein Thrombosis AICD NICM EF 20%, grade III disastolic dysfunction, mild MVR, Increased Left atrial size Chronic Renal Insufficiency Anesthetic Plan ASA status: 4 Anesthesia: MAC Risk of > 500 ml blood loss (7ml/kg in children): No Medications/Allergies Home Medications Medication Instructions Recorded Confirmed Last Taken Type carvedilol 25 mg tablet 25 mg PO BID 09/21/20 06/21/24 Unknown History cholecalciferol (vitamin D3) 50 50 mcg PO DAILY 09/21/20 06/21/24 Unknown History mcg (2,000 unit) tablet lisinopril 10 mg tablet 10 mg PO DAILY 09/21/20 06/21/24 Unknown History insulin glargine 100 unit/mL (3 25 unit SUBCUT DAILY 12/20/20 06/21/24 Unknown History mL) subcutaneous pen (Lantus Solostar U-100 Insulin) omeprazole 20 mg capsule,delayed 20 mg PO BID 12/20/20 06/21/24 Unknown History release ascorbate calcium (vitamin C) 500 500 mg PO DAILY 04/25/22 06/21/24 Unknown History mg tablet cyclobenzaprine 10 mg tablet 10 mg PO TID 04/25/22 06/21/24 Unknown History naproxen sodium 220 mg tablet 220 mg PO BID PRN pain 04/25/22 06/21/24 Unknown History rosuvastatin 20 mg tablet 20 mg PO DAILY 04/25/22 06/21/24 Unknown History apixaban 5 mg tablet (Eliquis) 5 mg PO BID #180 tabs 05/07/23 06/21/24 06/18/24 12:00 Rx tiotropium bromide 2.5 2 inh inhalation QAM 04/22/24 06/21/24 Unknown History mcg/actuation mist for inhalation Allergies Allergy/AdvReac Type Severity Reaction Status Date / Time atorvastatin [From Lipitor] Allergy ADR-Muscle Verified 06/21/24 20:26 Pain Current Medications Generic Name Dose Route Start Last Admin Trade Name Freq PRN Reason Stop Dose Admin Acetaminophen 650 mg 06/21/24 21:05 06/23/24 01:32 Acetaminophen 325 Mg Tablet PO 650 mg Q6H PRN Administration Mild/Mod Pain Or Temp >/= 101 Amiodarone HCl 400 mg 06/23/24 18:00 06/24/24 08:37 Amiodarone 200 Mg Tablet PO 400 mg BID MONSE Administration Apixaban 5 mg 06/22/24 09:00 06/24/24 08:38 Apixaban 5 Mg Tablet PO 5 mg BID MONSE Administration Cyclobenzaprine HCl 10 mg 06/22/24 05:21 06/23/24 01:32 Cyclobenzaprine 10 Mg Tablet PO 10 mg TID PRN Administration SPASMS Amiodarone HCl/Dextrose 360 mg in 200 mls @ 0 mls/hr 06/21/24 21:09 06/24/24 05:10 Nexterone IV 0.5 mg/min .Q0M MONSE 16.67 mls/hr Administration Protocol Per Protocol Insulin Human Lispro 0 unit 06/22/24 08:00 06/24/24 11:47 Insulin Lispro 100 Unit/1 Ml SUBCUT Not Given WM&BEDTIME MONSE Protocol Ipratropium [place] 0.5 mg 06/22/24 08:00 06/24/24 07:40 Ipratropium 0.5 Mg/2.5 Ml Neb INHALATION 0.5 mg QID.RESPIRATORY MONSE Administration Metoprolol Tartrate 50 mg 06/22/24 21:00 06/24/24 08:37 Metoprolol Tartrate 50 Mg Tablet PO 50 mg BID@0900,2100 MONSE Administration Pantoprazole Sodium 40 mg 06/22/24 09:00 06/24/24 08:[address] 40 Mg Tablet PO 40 mg DAILY MONSE Administration [facility] Anesthesia Medical History Hypertension Diabetes Arthritis Irregular heart rate Cardiac defibrillator in place COPD (chronic obstructive pulmonary disease) Surgical History History of tubal ligation Family History Sister Cancer Other Diabetes Social History Smoking and tobacco/nicotine status: former use of tobacco/nicotine Data Anesthesia 06/24/24 04:00 06/24/24 04:00 Short CBC 06/23/24 06/24/24 Range/Units 03:56 04:00 WBC 8.86 9.33 (3.29-11.43) 10^3/uL Hgb 10.10 L 10.10 L (11.27-16.99) g/dL Hct 32.9 L 32.8 L (36-47) % MCV 90.9 89.6 (85-98) fl Plt Count 222 221 (157-399) 10^3/cmm Neut % (Auto) 58.5 61.1 % Neut # (Auto) 5.17 5.70 (1.8-7.7) 10^3/uL BMP 06/23/24 06/24/24 03:56 04:00 Sodium 136 136 Potassium 4.4 4.1 Chloride 102 102 Carbon Dioxide 22 22 BUN 23 17 Creatinine 1.1 H 0.9 Glucose 171 H 162 H Calcium 9.1 9.4 Liver Function 06/23/24 06/24/24 Range/Units 03:56 04:00 Total Bilirubin 0.2 0.2 (0.15-1.2) mg/dL AST 20 17 (0-32) U/L ALT 15 14 (0-33) U/L Alkaline Phosphatase 87 97 (35-105) U/L Albumin 3.7 3.7 (3.5-5.2) g/dL Cardiac Studies: Echocardiogram 06/23/24
--- NOTE | 2024-06-24 14:49 | PC.NURSE ---
Pt adamant that she is going home today and will leave AMA. Informed Dr. Linares that the pt wanted to leave AMA and that he may need to come speak with her as I know that Dr. Guevara wanted to keep her overnight and adjust her medications. Dr. Linares came down and spoke to the pt and she stated that she was leaving ama. Medications called in and delivered to her bedside and a f/u appointment was scheduled to see Tali Basurto per Dr. Linares's request.
--- NOTE | 2024-06-24 15:13 | W.PM.EVENTAC ---
Event Note Event Note: Patient reported she was going AGAINST MEDICAL ADVICE. I could not convince her otherwise. We discussed benefit of staying in the hospital with adjustment of medications, reducing chance of bradycardia or other adverse event. Risks included worsening cardiac arrhythmia, potential for and/or disability. She stated that she was going to go home no matter what secondary to travel issues. I did provide discharge medicines, and will try to get appropriate follow-up.
--- NOTE | 2024-06-24 15:55 | PC.NURSE ---
Pt left with her son. Meds were delivered to bedside and a f/u appt was scheduled with Tali Basurto. Pt stated understanding and walked out via ambulation with her son. Pt signed ama form.
--- NOTE | 2024-06-29 23:13 | PM.PROC ---
Procedure Note: Date of procedure: 06/24/24 Pre-procedure diagnosis: Atrial fibrillation Post-procedure diagnosis: other (Converted to sinus rhythm) Procedure: After explaining all risk-benefit and alternative for the procedure. Informed consent was obtained from the patient. Anesthesia administered propofol, please see anesthesia note. After confirming deep sedation and placement of anterior/posterior biphasic defibrillator pads, 120 J of biphasic electrical current was delivered. Patient converted back to sinus rhythm. Patient tolerated procedure well and recovered without any complication. Complications: None Coding Level of Care Code Acute Code for g Gomez
== END 2024-06-24 15:55 | disposition left against medical advice (07) | DRG 315 ==
LOC: ICU 06-23 07:06 → CSU 06-23 13:12
PROVIDERS: Family Medicine; Student in an Organized Health Care Education/Training Program; Admitting Provider Family Medicine; PCP Nurse Practitioner Family; Visit Provider Internal Medicine
DX: I95.89 Other hypotension (principal); I42.8 Other cardiomyopathies; T46.1X5A Adverse effect of calcium-channel blockers, initial encounter; Z53.29 Procedure and treatment not carried out because of patient's decision for other reasons; E11.22 Type 2 diabetes mellitus with diabetic chronic kidney disease; I12.9 Hypertensive chronic kidney disease with stage 1 through stage 4 chronic kidney disease, or unspecified chronic kidney disease; N18.9 Chronic kidney disease, unspecified; J44.9 Chronic obstructive pulmonary disease, unspecified; R91.1 Solitary pulmonary nodule; Z95.810 Presence of automatic (implantable) cardiac defibrillator; Z86.718 Personal history of other venous thrombosis and embolism; Z79.4 Long term (current) use of insulin; Z87.891 Personal history of nicotine dependence
CPT/HCPCS: 36415; 36416; 71250; 80053; 82607; 82728; 82746; 82962; 83036; 83540; 83550; 83735; 84443; 84484; 85025; 87426; 93005; 93306; 94640; 96372; 96376; A4222; J0283; J1160; J1815; J2270; J2704; J3490; J7644

== ENCOUNTER → 2024-07-04 10:45 | Outpatient (BNVA) | payer OTHER, SELFPAY | PROVIDERS: PCP Nurse Practitioner Family; Visit Provider Nurse Practitioner Family | DX: I48.91 Unspecified atrial fibrillation (principal); Z86.79 Personal history of other diseases of the circulatory system; I50.20 Unspecified systolic (congestive) heart failure | CPT/HCPCS: 93005; 99214 ==

== ENCOUNTER → 2024-08-13 09:44 | Outpatient (BNVA) | payer OTHER, SELFPAY | PROVIDERS: PCP Nurse Practitioner Family; Visit Provider Nurse Practitioner Family | DX: I11.0 Hypertensive heart disease with heart failure (principal); I50.20 Unspecified systolic (congestive) heart failure; Z95.810 Presence of automatic (implantable) cardiac defibrillator; Z87.891 Personal history of nicotine dependence; Z79.01 Long term (current) use of anticoagulants | CPT/HCPCS: 99214 ==

== ENCOUNTER 2025-04-10 22:18 | Emergency (ER) | payer OTHER, SELFPAY ==
[2025-04-10 22:19] VITALS: BP 137/82; PULSE 74; RESP 16; TEMP 36.9; O2SAT 97; BMI 21.1
--- NOTE | 2025-04-10 22:27 | XRR_ITS ---
PROCEDURE INFORMATION: Exam: XR Right Shoulder Exam date and time: 04/10/2025 10:31 PM Age: 69 years old Clinical indication: Injury or trauma; Blunt trauma (contusions or hematomas); Right; Prior surgery; Surgery date: 6+ months; Surgery type: Pacer; EMS arrival for fall. C/O RT shoulder and neck pain. Deformity to RT clavicle. TECHNIQUE: Imaging protocol: Radiologic exam of the right shoulder. Views: 2 or more views. COMPARISON: CT chest [facility] [id number] 06/22/2024 11:14 AM FINDINGS: Bones/joints: Mid clavicle fracture with overlap of the fracture fragments. Severe glenohumeral joint osteoarthritis. Soft tissues: Normal. XR/XR shoulder RT min 2V* [id number] IMPRESSION: 1. Mid clavicle fracture with overlap of the fracture fragments. 2. Severe glenohumeral joint osteoarthritis.
--- NOTE | 2025-04-10 22:27 | XRR_ITS ---
PROCEDURE INFORMATION: Exam: XR Cervical Spine Exam date and time: 04/10/2025 10:35 PM Age: 69 years old Clinical indication: Injury or trauma; Blunt trauma; Prior surgery; Surgery date: 6+ months; Surgery type: Pacer; EMS arrival for fall. C/O RT shoulder and neck pain. Deformity to RT clavicle. TECHNIQUE: Imaging protocol: Radiologic exam of the cervical spine. Views: 2 or 3 views. COMPARISON: CR (CHEST, ) 04/10/2025 10:31 PM FINDINGS: Bones/joints: Mid clavicle fracture with overlap of the fracture fragments. Multilevel severe disc space narrowing and productive endplate changes throughout the spine. Soft tissues: Unremarkable. XR/XR cervical spine 3V* [id number] IMPRESSION: 1. Mid clavicle fracture with overlap of the fracture fragments. 2. Multilevel severe disc space narrowing and productive endplate changes throughout the spine.
--- NOTE | 2025-04-10 22:28 | W.ED.EXTPRO ---
HPI - Extremity Problem General: Chief complaint: Extremity Injury, Upper Stated complaint: FALL, RIGHT SHOULDER INJURY Time Seen by Provider: 04/10/25 22:22 Source: patient Mode of arrival: EMS Limitations: no limitations History of Present Illness: 69yo female presents via EMS for evaluation of right shoulder pain following a fall. Patient states that she tripped over her kittens landing on her right side on hard ground. Patient reports that she does have increased pain with any movement of the right arm. Patient is right-hand dominant. Patient denies hitting her head, loss consciousness, vomiting, headache, any other concerns at this time. Patient did receive 200 mcg fentanyl and 4 mg Zofran via EMS Associated symptoms: Deny chest pain or fever(s) Related Data Home Medications ?Medication ?Instructions ?Recorded ?Confirmed cholecalciferol (vitamin D3) 50 50 mcg PO DAILY 09/21/20 08/13/24 mcg (2,000 unit) tablet insulin glargine 100 unit/mL (3 25 unit SUBCUT DAILY 12/20/20 08/13/24 mL) subcutaneous pen (Lantus Solostar U-100 Insulin) omeprazole 20 mg capsule,delayed 20 mg PO BID 12/20/20 08/13/24 release ascorbate calcium (vitamin C) 500 500 mg PO DAILY 04/25/22 08/13/24 mg tablet cyclobenzaprine 10 mg tablet 10 mg PO TID 04/25/22 08/13/24 naproxen sodium 220 mg tablet 220 mg PO BID PRN pain 04/25/22 08/13/24 rosuvastatin 20 mg tablet 20 mg PO DAILY 04/25/22 08/13/24 tiotropium bromide 2.5 2 inh inhalation QAM 04/22/24 08/13/24 mcg/actuation mist for inhalation sacubitril 49 mg-valsartan 51 mg 1 tab PO ONCE 08/13/24 08/13/24 tablet Previous Rx's ?Medication ?Instructions ?Recorded apixaban 5 mg tablet (Eliquis) 5 mg PO BID #180 tabs 05/07/23 metoprolol tartrate 25 mg tablet 25 mg PO BID #180 tabs 08/13/24 amiodarone 200 mg tablet 200 mg PO DAILY #90 tabs 01/01/25 hydrocodone 5 mg-acetaminophen 325 1 tab PO Q8H PRN pain #12 tabs 04/10/25 mg tablet ondansetron 4 mg disintegrating 4 mg PO Q8H PRN nausea and 04/10/25 tablet vomiting #20 tabs Allergies Allergy/AdvReac Type Severity Reaction Status Date / Time atorvastatin (From Lipitor) Allergy ADR-Muscle Verified 08/13/24 09:53 Pain Review of Systems Const: Denies: fever(s), chills or body aches Card: Denies: chest pain Resp: Denies: dyspnea GI: Denies: vomiting Musc: Reports: extremity pain (Right shoulder) PFS ED PFSH: Medical History (Updated 04/10/25 @ 23:39 by LESA Rosales) Atrial fibrillation History of congestive heart failure Hypertension Diabetes Arthritis Cardiac defibrillator in place [employer] ICD implant 11/18/2018 COPD (chronic obstructive pulmonary disease) Surgical History History of tubal ligation Family History Sister Cancer Other Diabetes Social History Smoking and tobacco/nicotine status: former use of tobacco/nicotine Physical Exam Const: COMMON NORMALS: no acute distress, patient oriented x3, healthy appearing and alert GENERAL APPEARANCE: cooperative ORIENTATION/CONSCIOUSNESS: Yes awake OTHER: Patient is sitting upright on the stretcher in no acute distress. She is able to give history with no difficulty. She is interactive with exam appropriately. No family at bedside at time of exam HENMT: COMMON NORMALS: normocephalic, atraumatic and external ears normal HEAD & SCALP: normocephalic and atraumatic EXTERNAL EAR: Yes external ears normal Neck/C-Spine: COMMON NORMALS: full ROM CERVICAL SPINE: Yes Cervical spine tenderness C5 and C6 Chest: CHEST: Yes Symmetrical chest wall rise Resp: COMMON NORMALS: normal respiratory effort and clear to auscultation bilaterally EFFORT & INSPECTION: Yes able to speak in complete sentences AUSCULTATION: clear to auscultation bilaterally Extremity: RIGHT UPPER EXTREMITY: Yes clavicle Right clavicle: Yes inspection (Deformity and ecchymosis present) and Yes palpation (Tenderness to palpation) OTHER: No tenderness palpation to the right shoulder, forearm, wrist, hand. Sensation is intact. Radial pulse 2+, capillary refill less than 3 seconds Neuro: COMMON NORMALS: patient oriented x3 SENSORIUM/ORIENTATION: Yes alert Psych: COMMON NORMALS: cooperative Course Vital Signs: Vital signs: Vital Signs Temperature 98.4 F 04/10/25 22:19 Pulse Rate 74 04/10/25 22:19 Respiratory Rate 16 04/10/25 22:19 Blood Pressure 137/82 04/10/25 22:19 Pulse Oximetry 97 04/10/25 22:19 Oxygen Delivery Me thod Room Air 04/10/25 22:19 MDM - Extremity (Nontraumatic) Medical Decision Making 69yo female presents via EMS for evaluation of right shoulder pain following a fall. Patient states that she tripped over her kittens landing on her right side on hard ground. Patient is nontoxic in appearance. Vital signs are stable. Cervical spine x-ray with multilevel severe to space narrowing and endplate changes throughout the spine. Right shoulder x-ray shows a mid clavicle fracture with overlap of the fracture fragments. Discussed findings with patient. Advised that we would apply a sling, provide pain medication, and send her to orthopedics outpatient. Patient to receive hydrocodone while in the emergency department and prescription sent to patient's pharmacy. Sedation precautions provided. Ondansetron prescribed as well. Recommend use of the sling to protect the arm and the fracture. Discussed application of a cool compress to help with swelling. Advised to follow-up with orthopedics as soon as possible. Return precautions provided. Patient states understanding and has no further questions or concerns at this time. Medical Records I reviewed the patient's medical records. Lab Data Radiology Impressions Cervical Spine X-Ray 04/10/25 22:27 IMPRESSION: 1. Mid clavicle fracture with overlap of the fracture fragments. 2. Multilevel severe disc space narrowing and productive endplate changes throughout the spine. Shoulder X-Ray 04/10/25 22:27 IMPRESSION: 1. Mid clavicle fracture with overlap of the fracture fragments. 2. Severe glenohumeral joint osteoarthritis. All radiology interpretation(s) finalized by discharge Discharge Plan Discharge Patient Disposition: Home Clinical Impression: Right clavicle fracture Qualifiers: Encounter type: initial encounter Clavicle location: shaft Fracture type: closed Fracture alignment: displaced Qualified Code(s): S42.021A - Displaced fracture of shaft of right clavicle, initial encounter for closed fracture Fall from slip, trip, or stumble Qualifiers: Encounter type: initial encounter Qualified Code(s): W01.0XXA - Fall on same level from slipping, tripping and stumbling without subsequent striking against object, initial encounter Condition: Stable Prescriptions: New ondansetron 4 mg tablet,disintegrating 4 mg PO Q8H PRN (Reason: nausea and vomiting) Qty: 20 0RF hydrocodone-acetaminophen 5-325 mg tablet 1 tab PO Q8H PRN (Reason: pain) Qty: 12 0RF No Action cholecalciferol (vitamin D3) 50 mcg (2,000 unit) tablet 50 mcg PO DAILY Lantus Solostar U-100 Insulin 100 unit/mL (3 mL) insulin pen 25 unit SUBCUT DAILY omeprazole 20 mg capsule,delayed release(DR/EC) 20 mg PO BID tiotropium bromide 2.5 mcg/actuation mist 2 inh inhalation QAM cyclobenzaprine 10 mg tablet 10 mg PO TID rosuvastatin 20 mg tablet 20 mg PO DAILY ascorbate calcium (vitamin C) 500 mg tablet 500 mg PO DAILY naproxen sodium 220 mg tablet 220 mg PO BID PRN (Reason: pain) sacubitril-valsartan 49-51 mg tablet 1 tab PO ONCE metoprolol tartrate 25 mg tablet 25 mg PO BID Qty: 180 1RF Eliquis 5 mg tablet 5 mg PO BID Qty: 180 3RF amiodarone 200 mg tablet 200 mg PO DAILY Qty: 90 1RF Discharge Orders: Discharge ED (Routine); Ordered 04/10/25 Ordered By: Adolfo Isaacs Referrals: YARELI PUCKETT [Primary Care Provider, Nurse Practitioner] Patient Instructions: Clavicle Fracture (ED), Opioid Safety, Pain Management Activity Restrictions/Additional Instructions: You did have a fracture of the right clavicle. The fracture pieces are overlapping. Please keep the sling in place to protect from further injury. Short course hydrocodone has been sent to the pharmacy for moderate to severe pain. Please not drive or operate heavy machinery while taking pain medications Ondansetron has been sent to the pharmacy for nausea/vomiting that is very common with pain medications A referral has been placed to orthopedics. Please follow-up with orthopedics as soon as possible Return to the emergency department if any further injury, rapid worsening symptoms, and as needed Print Language: Lebanese Coding Level of Care Code ED [employer] Press Hand for Jael Dyer
[2025-04-11] MEDS: HYDROcodone-acetaminophen 5-325 mg Tablet 1 TAB PO ×2 (00:16)
[2025-04-11 00:46] VITALS: BP 137/82; PULSE 74; O2SAT 92
--- NOTE | 2025-04-14 09:17 | DCPLANNER ---
Message sent to Ortho for follow up-9yo female presents via EMS for evaluation of right shoulder pain following a fall. Patient states that she tripped over her kittens landing on her right side on hard ground. Patient is nontoxic in appearance. Vital signs are stable.
== END 2025-04-11 00:14 | disposition home or self-care (01) ==
PROVIDERS: Emergency Provider Nurse Practitioner; PCP Nurse Practitioner Family
DX: S42.021A Displaced fracture of shaft of right clavicle, initial encounter for closed fracture (principal); W01.0XXA Fall on same level from slipping, tripping and stumbling without subsequent striking against object, initial encounter; Z79.01 Long term (current) use of anticoagulants; Z87.891 Personal history of nicotine dependence; J44.9 Chronic obstructive pulmonary disease, unspecified; E11.9 Type 2 diabetes mellitus without complications; I11.0 Hypertensive heart disease with heart failure; I50.9 Heart failure, unspecified
CPT/HCPCS: 72040; 73030; 99284; J9999

== ENCOUNTER → 2025-04-15 10:53 | Outpatient (BNVA) | payer OTHER, SELFPAY | PROVIDERS: PCP Nurse Practitioner Family; Visit Provider Physician Assistant | DX: S42.021A Displaced fracture of shaft of right clavicle, initial encounter for closed fracture (principal); W01.0XXA Fall on same level from slipping, tripping and stumbling without subsequent striking against object, initial encounter | CPT/HCPCS: 73000; 99204 ==

== ENCOUNTER 2025-04-17 10:03 | Day surgery (SDC) | payer OTHER, SELFPAY ==
[2025-04-17] VITALS (15 sets, daily range): BP systolic 114–175; BP diastolic 68–96; PULSE 62–73; RESP 12–20; TEMP 36.2–36.6; O2SAT 92–100; BMI 21.1
[2025-04-17] MEDS: acetaminophen 1,000 MG/100 ML PIGGYBACK 400 MG IV (10:41)
[2025-04-17] MEDS: sodium chloride 0.9% 1,000 ML 30 ML IV (10:42)
[2025-04-17] MEDS: scopolamine 1 mg PATCH 1 PATCH TRANSDERMA (10:43)
[2025-04-17] MEDS: ketorolac 30 mg/mL INJ IVP (10:45)
[2025-04-17 10:54] LABS: Glucose Point of Care 172 mg/dL (70-110)
--- NOTE | 2025-04-17 11:19 | ANES.PREANE2 ---
Pre-Anesthetic Assessment Height/Weight: Height 1.7 m Weight 61.235 kg Temp Pulse Resp BP Pulse Ox O2 Del Method 97.8 F 67 16 129/84 93 Room Air 04/17/25 10:15 04/17/25 10:15 04/17/25 10:15 04/17/25 10:15 04/17/25 10:15 04/17/25 10:24 Operation Date: 04/17/25 12:00 Proposed Procedures p ORIF Clavicle(Right) - Estuardo Armaan, DO Familial anesthetic complications: None Was Beta Ritika taken within 24 hours: N/A Was Clonidine taken within 24 hours: N/A Last intake: Intake Last Liquid Date 04/16/25 Last Liquid Time 22:00 Last Solid Date 04/16/25 Last Solid Time 19:00 Social No alcohol and No tobacco Exam alert, oriented x 3, clear to auscultation bilaterally and regular rate & rhythm Airway Mallampati: Class I Dentition: other (no teeth) CV/HEM Atrial Fibrillation, Congestive Heart Failure (grade III diastolic dysfunction), Deep Vein Thrombosis, Hypertension and Myocardial Infarction NICM EF 20% defribrillator Chronic Renal Insufficiency Metabolic Diabetes Mellitus and Hyperlipidemia Anesthetic Plan ASA status: 4 Anesthesia: General Risk of > 500 ml blood loss (7ml/kg in children): No Other Pertinent Information discussed high risk of nimco-operative cardiac complications with patient and family Will place magnet over AICD and place defibrillator pads Medications/Allergies Home Medications ?Medication ?Instructions ?Recorded ?Confirmed ?Last Taken ?Type cholecalciferol (vitamin D3) 50 50 mcg PO DAILY 09/21/20 04/16/25 04/15/25 History mcg (2,000 unit) tablet insulin glargine 100 unit/mL (3 25 unit SUBCUT DAILY 12/20/20 04/16/25 04/09/25 History mL) subcutaneous pen (Lantus Solostar U-100 Insulin) omeprazole 20 mg capsule,delayed 20 mg PO BID 12/20/20 04/16/25 04/15/25 History release ascorbate calcium (vitamin C) 500 500 mg PO DAILY 04/25/22 04/16/25 04/16/25 History mg tablet cyclobenzaprine 10 mg tablet 10 mg PO TID 04/25/22 04/16/25 Unknown History rosuvastatin 20 mg tablet 20 mg PO DAILY 04/25/22 04/16/25 04/15/25 History apixaban 5 mg tablet (Eliquis) 5 mg PO BID #180 tabs 05/07/23 04/16/25 04/15/25 Rx metoprolol tartrate 25 mg tablet 25 mg PO BID #180 tabs 08/13/24 04/16/25 04/15/25 Rx hydrocodone 7.5 mg-acetaminophen 1 tab PO Q6H PRN pain 5 days #20 04/15/25 04/16/25 04/16/25 Rx 325 mg tablet tabs amiodarone 200 mg tablet (Pacerone) 200 mg PO DAILY 04/16/25 04/16/25 04/15/25 History lisinopril 20 mg tablet 20 mg PO DAILY 04/16/25 04/16/25 04/15/25 History Allergies Allergy/AdvReac Type Severity Reaction Status Date / Time atorvastatin (From Lipitor) Allergy ADR-Muscle Verified 04/16/25 13:19 Pain Current Medications Generic Name Dose Route Start Last Admin Trade Name Freq PRN Reason Stop Dose Admin Sodium Chloride 1,000 mls @ 30 mls/hr 04/17/25 10:30 04/17/25 10:42 Sodium Chloride 0.9% IV 04/18/25 10:29 30 mls/hr .Q24H MONSE Administration PFSH Anesthesia Medical History Atrial fibrillation History of congestive heart failure Hypertension Diabetes Arthritis Cardiac defibrillator in place [employer] ICD implant 11/18/2018 COPD (chronic obstructive pulmonary disease) Surgical History History of tubal ligation Family History Sister Cancer Other Diabetes Social History Smoking and tobacco/nicotine status: former use of tobacco/nicotine Data Anesthesia Cardiac Studies: Echocardiogram 06/23/24
--- NOTE | 2025-04-17 11:53 | W.PM.OPSUD ---
Surgery/Procedure H&P Update DATE OF PROCEDURE: April 17, 2025 DATE H&P PERFORMED: 04/15/25 H&P UPDATE INFORMATION: I have reviewed H&P completed within last 30 days, I have examined patient prior to procedure and No changes to prior documentation PREOP DIAGNOSIS: Right displaced midshaft clavicle fracture PRIMARY INDICATION FOR PROCEDURE: Right displaced midshaft clavicle fracture PLANNED PROCEDURE: Operation Date: 04/17/25 12:00 Proposed Procedures p ORIF Clavicle(Right) - Estuardo Crook DO
[2025-04-17] MEDS: ceFAZolin 2,000 MG in sodium chloride 0.9% (plus) 50 ML 100 MG IV (12:27)
--- NOTE | 2025-04-17 14:19 | W.PM.BPON ---
Date of Procedure: 04/17/2025 Surgeon: Estuardo Crook DO Installation Drafter(s): Pa Crook PA-C Procedure(s) performed: Right midshaft clavicle fracture open reduction internal fixation Findings of the procedure(s): Patient underwent procedure as planned without issues or complications Estimated blood loss: 10 mL Specimen(s) removed: 2 small free-floating bony fragments from combination were removed as these were stripped of all periosteum, not sent for specimen Post-operative diagnosis: Right displaced midshaft clavicle fracture
--- NOTE | 2025-04-17 14:21 | PM.OP ---
Operative Report Date of procedure: April 17, 2025 Pre-op diagnosis: Right displaced midshaft clavicle fracture with comminution Z type deformity Post-op diagnosis: Same Post-op findings: See operative report narrative Procedure done: Right midshaft clavicle fracture open reduction internal fixation Implants: Right s-shaped superior plating 8 hole Arthrex plate Combination of locking and nonlocking screws, 1 interfragmentary 2.7 millimeter screw Specimens removed/disposition: 2 free-floating comminuted bony fragments removed as these were stripped of periosteum not sent for specimen Surgeon: Estuardo Crook DO Director Of Manufacturing: Pa Crook PA-C: PA was necessary for assistance in this case with arm positioning, assistance with reduction, retraction and protection of neurovascular structures as well as to assist with fracture fixation/implantation wound closure and dressing application. Anesthesia: General Estimated blood loss: 10 mL IV fluids: 800 mL Complications: None Findings: See operative report narrative Condition: stable Disposition: same day Brief History: Patient is a [id number] female who had a severely displaced and comminuted Z-type deformity right midshaft clavicle fracture. Given its patient's displacement and she is very active we talked about her treatment options in detail and through shared decision making she elected to proceed with surgical invention for right clavicle open reduction internal fixation. We talked about the ins and outs procedure risk benefits complication alternatives of surgery and through shared decision making patient elects proceed with surgical invention. All questions answered at this time. Procedure: Patient seen examined the preoperative holding area. Consent was reviewed and signed with patient. Correct extremity was then subsequently marked. Patient then was seen evaluated by anesthesia once cleared for surgery was taken back to the operative suite.. Patient was then subsequently moved over to the OR table placed in supine position all bony prominences well-padded patient was probably secured to the bed. Patient's right upper extremity was then prepped and draped in standard orthopedic fashion. Final timeout performed. Patient received appropriate preoperative antibiotics. C-arm was then brought in marking out fracture site as well as position and sizing for plate once satisfied with images then proceeded with surgical intervention. Made an S shaped incision centered superiorly over top of the clavicle. This point time sharp scalpel incision made through skin and then I switched to electrocautery dissection scissors to dissect and maintain exact hemostasis down directly over the fracture immediately encountered the distal fracture fragment and then to free-floating loose fragments stripped of all periosteum for the Z-type deformity these were then subsequently removed. I then utilized a blunt periosteal elevator and subsequently mobilized the periosteum and full-thickness flaps circumferentially around the clavicle. At this point in time I utilized a [id number] clamp to obtain a reduction which this did have an oblique fracture pattern in the coronal plane which was able to be reduced and would be amenable for interfragmentary lag screw fixation from anterior to posterior. As result this reduction was held brought in C arm to confirm reduction and then subsequently drilled and placed a 2.7 mm lag screw with Arthrex. This had good fixation I switched and selected an S shaped 8 hole plate. I then subsequently confirmed appropriate plate placement both medially and laterally the fracture to accommodate for 3 screws medial and 3 screws distal. At this point in time I then subsequently placed 2 cortical screws 1 medial and 1 lateral to the fracture site to compress plate to bone these had excellent fixation and took x-rays of confirming appropriate plate placement. Once I was satisfied with this I then subsequently drilled and placed an additional 2 locking screws medially and 2 locking screws laterally. My baking assistant placed blunt Wide baby Hohmann retractors underneath the during each drilling to protect neurovascular structures. These were all subsequently drilled measured appropriate length screws were placed with excellent fixation. This completed my fixation and then took final x-rays which showed satisfactory reduction and fixation of midshaft clavicle fracture. Thorough irrigation was performed. The areas where there was fragmentation loss to the butterfly fragments I did use [employer] DBM putty pelvis send to turning machine operator helper in patient's healing given her age as well as the 2 small removed butterfly fragments. Then closed in layered fashion with 0 Vicryl suture to reapproximate periosteum over top of the plate 2-0 Vicryl for subcutaneous tissue and a running Monocryl suture with Prineo glue for the skin and a Silverlon dressing. Patient tolerated procedure well without issues or complications placed into an UltraSling taken recovery in stable condition. Disposition: Patient taken recovery in stable condition. Patient in sling dressing on in place clean dry and intact. Patient received appropriate discharge instructions as well as pain medication postoperatively. Will follow-up in orthopedic office in 2 weeks. Patient family understand agree with current plan. Questions answered. Patient family updated postoperatively.
--- NOTE | 2025-04-17 14:35 | XR_ITS ---
WS: [id number] [place] [id number] REASON FOR EXAM: OR PICS FINDINGS: Plate and screw fixation of minimally comminuted mid shaft fracture of the right clavicle. Fracture fragments are in good apposition and alignment. Surgical appliances are intact and in proper position and alignment. XR/[place] [id number] IMPRESSION: Internal fixation of right clavicle fracture as above.
[2025-04-17] MEDS: fentaNYL 50 mcg/mL INJ 2mL IVP ×2 (14:54→15:03)
--- NOTE | 2025-04-17 15:09 | PM.PACU ---
PACU note Narrative: Patient is a 69-year-old female who just underwent a right clavicle ORIF. Patient transferred to PACU in stable condition. Pain is well controlled. shoulder Dressing on , dry and in place. Patient's operative arm is in a shoulder immobilizer. Patient is awake and alert and able to respond to my questions accordingly. Patient's fingers are warm with good perfusion. Normal cap refill under 2 seconds. Unable to assess further range of motion in arm due to sling. Sensation of fingers intact Exam: awake Disposition: discharged
--- NOTE | 2025-04-17 16:00 | ANE.PACU2 ---
Inpatient post-anesthesia follow up: Airway intact: Yes Vital signs: Temperature 97.9 F Pulse Rate 71 Respiratory Rate 18 Blood Pressure 125/68 Pulse Oximetry 95 Oxygen Delivery Me thod Room Air Oxygen Flow Rate 10 Fraction of Inspir ed Oxygen Hydration adequate: Yes Nausea and vomiting: No Pain level: 1 Mental status: Baseline
== END 2025-04-17 16:00 | disposition home or self-care (01) ==
PROVIDERS: PCP Nurse Practitioner Family; Visit Provider Student in an Organized Health Care Education/Training Program
PROC: (CPT 23515; principal; 2025-04-17 12:00)
DX: S42.021A Displaced fracture of shaft of right clavicle, initial encounter for closed fracture (principal); E11.9 Type 2 diabetes mellitus without complications; E78.5 Hyperlipidemia, unspecified; I48.91 Unspecified atrial fibrillation; I25.2 Old myocardial infarction; I50.9 Heart failure, unspecified; I11.0 Hypertensive heart disease with heart failure; Z86.718 Personal history of other venous thrombosis and embolism; Z79.899 Other long term (current) drug therapy; J44.9 Chronic obstructive pulmonary disease, unspecified; Z95.810 Presence of automatic (implantable) cardiac defibrillator; Z87.891 Personal history of nicotine dependence; Z79.01 Long term (current) use of anticoagulants; W01.0XXA Fall on same level from slipping, tripping and stumbling without subsequent striking against object, initial encounter
CPT/HCPCS: 23515; 36416; 73000; 76000; 82962; C1713; J0131; J0690; J1100; J1885; J2371; J2405; J2704; J2710; J3010; J3490; J7030; J9999

== ENCOUNTER → 2025-04-30 09:30 | Outpatient (BNVA) | payer OTHER, SELFPAY | PROVIDERS: PCP Nurse Practitioner Family; Visit Provider Physician Assistant | DX: S42.021D Displaced fracture of shaft of right clavicle, subsequent encounter for fracture with routine healing (principal); Z98.890 Other specified postprocedural states; X58.XXXD Exposure to other specified factors, subsequent encounter | CPT/HCPCS: 73000; 99024 ==

== ENCOUNTER → 2025-05-19 13:28 | Outpatient (BNVA) | payer OTHER, SELFPAY | PROVIDERS: PCP Nurse Practitioner Family; Visit Provider Physician Assistant | DX: Z98.890 Other specified postprocedural states (principal); S42.021D Displaced fracture of shaft of right clavicle, subsequent encounter for fracture with routine healing; X58.XXXD Exposure to other specified factors, subsequent encounter | CPT/HCPCS: 73000; 99024 ==